=== PATIENT | female | born 1990 | race Caucasian/White ===

== ENCOUNTER 2021-03-29 01:16 | Emergency (ER) | payer MEDICAID, OTHER, SELFPAY ==
[~2021-03-29] VITALS: Ht 170.2 cm; Wt 103.3 kg
--- NOTE | 2021-03-29 01:51 | NUR ---
REPORT TO DAYRON BASHIR
--- NOTE | 2021-03-29 02:00 | NUR ---
REPORT FROM NOAH PADGETT
[2021-03-29] MEDS ORDERED: ONDANSETRON 2MG/ML, 2ML ONE (02:09)
[2021-03-29] MEDS ORDERED: HYDROmorphone 1 MG/ML, 1ML INJ ONE (02:09)
[2021-03-29] MEDS ORDERED: PROPOFOL 10 MG/ML, 20ML IVPush ONE (02:30)
[2021-03-29] MEDS ORDERED: HYDROmorphone 1 MG/ML, 1ML INJ IV ONE (02:30)
[2021-03-29] MEDS ORDERED: ONDANSETRON 2MG/ML, 2ML IVPush ONE (02:30)
[2021-03-29] MEDS ORDERED: SODIUM CHLORIDE FLUSH 10ML SYR IVF ONE (02:30)
--- NOTE | 2021-03-29 02:40 | NUR ---
PT MOVED FROM ROOM 04 TO T-02 FOR SEDATION. FRIEND AT BEDSIDE
[2021-03-29] MEDS ORDERED: PROPOFOL 10 MG/ML, 20ML ONE ×2 (03:06→03:22)
[2021-03-29] MEDS ORDERED: OXYcodone/APAP 10/325MG TABLET PO ONE (04:00)
[2021-03-29] MEDS ORDERED: OXYcodone/APAP 10/325MG TABLET ONE (04:03)
--- NOTE | 2021-03-29 04:49 | NUR ---
PROCEDURAL SEDATION FOR RIGHT ANKLE WITH PROPOFOL. PT TOLERATED WELL. PT STEADY WITH CRUTCHES AND VERBALIZED DC INSTRUCTIONS. PTS FRIEND AT BEDSIDE TO DRIVE PT HOME. PT WHEELED TO DC DESK FOR COMFORT.
--- NOTE | 2021-03-29 04:51 | NUR ---
Patient given discharge instructions and they have confirmed that they understand the instructions. Patient taken out by wheelchair.
[2021-03-29 04:53] VITALS: BP 148/87
== END 2021-03-29 05:00 | disposition home or self-care (01) ==
LOC: ED 04:54
DX: S82.451A Displaced comminuted fracture of shaft of right fibula, initial encounter for closed fracture (principal); S82.51XA Displaced fracture of medial malleolus of right tibia, initial encounter for closed fracture; S93.04XA Dislocation of right ankle joint, initial encounter; W01.0XXA Fall on same level from slipping, tripping and stumbling without subsequent striking against object, initial encounter; Y93.89 Activity, other specified; Y92.009 Unspecified place in unspecified non-institutional (private) residence as the place of occurrence of the external cause; Y99.8 Other external cause status
CPT/HCPCS: 27825; 73600; 73610; 96374; 96375; 99152; 99285; J1170; J2405

== ENCOUNTER 2021-03-31 11:24 | Emergency (ER) | payer MEDICAID ==
[~2021-03-31] VITALS: Ht 165.1 cm; Wt 71.1 kg
[2021-03-31 11:44] VITALS: BP 153/104
[2021-03-31] MEDS ORDERED: KETOROLAC 30 MG/1 ML IM ONE (12:00)
--- NOTE | 2021-03-31 14:36 | NUR ---
supervisor gluing: Pt to room from lobby at this time.
[2021-03-31] MEDS ORDERED: KETOROLAC 30 MG/1 ML ONE (14:41)
[2021-03-31] MEDS ORDERED: HYDROmorphone 1 MG/ML, 1ML INJ ONE (15:52)
[2021-03-31] MEDS ORDERED: HYDROmorphone 1 MG/ML, 1ML INJ IM ONE (16:00)
== END 2021-03-31 17:37 | disposition home or self-care (01) ==
LOC: ED 15:54
DX: M25.571 Pain in right ankle and joints of right foot (principal); Z76.0 Encounter for issue of repeat prescription; F17.200 Nicotine dependence, unspecified, uncomplicated
CPT/HCPCS: 96372; 99284; J1170; J1885